=== PATIENT | female | born 1955 | race Caucasian/White ===

== ENCOUNTER 2021-07-29 13:53 | Outpatient (CLI) | payer BC | END 2021-07-29 13:54 | disposition home or self-care (01) | LOC: CSHMAMMO 13:53 | PROVIDERS: ATTEND Family Medicine Sports Medicine | DX: Z12.31 Encounter for screening mammogram for malignant neoplasm of breast (principal); Z98.82 Breast implant status | CPT/HCPCS: 77063; 77067 ==

== ENCOUNTER 2023-03-19 14:03 | Outpatient (CLI) | payer MEDICARE, OTHER | END 2023-03-19 14:04 | disposition home or self-care (01) | LOC: CSHMAMMO 14:03 | PROVIDERS: ATTEND Obstetrics & Gynecology | DX: Z12.31 Encounter for screening mammogram for malignant neoplasm of breast (principal); Z13.820 Encounter for screening for osteoporosis; M81.0 Age-related osteoporosis without current pathological fracture; M85.88 Other specified disorders of bone density and structure, other site; Z98.82 Breast implant status | CPT/HCPCS: 77063; 77067; 77080 ==

== ENCOUNTER 2024-05-29 11:34 | Outpatient (CLI) | payer MEDICARE | END 2024-05-29 11:35 | disposition home or self-care (01) | LOC: CSHULT 11:34 | PROVIDERS: ATTEND Family Medicine Sports Medicine | DX: R22.1 Localized swelling, mass and lump, neck (principal) | CPT/HCPCS: 76536 ==

== ENCOUNTER 2024-06-03 07:56 | Outpatient (CLI) | payer MEDICARE ==
[2024-06-03] MEDS ORDERED: Iopamidol 300 61% 100 ML VIAL FS ONE (14:21)
== END 2024-06-03 07:57 | disposition home or self-care (01) ==
LOC: CSHCT 07:56
PROVIDERS: ATTEND Family Medicine Sports Medicine
DX: R22.1 Localized swelling, mass and lump, neck (principal); C02.4 Malignant neoplasm of lingual tonsil; C77.0 Secondary and unspecified malignant neoplasm of lymph nodes of head, face and neck
CPT/HCPCS: 70491; 82565

== ENCOUNTER 2024-06-05 10:18 | Outpatient (CLI) | payer MEDICARE ==
[2024-06-05 11:11] LABS: Hematocrit 40.3 % (34.9-44.5)
[2024-06-05 12:07] LABS: Anion Gap 15 mmol/L (10-20); BUN (Urea Nitrogen) 9 mg/dL (9.8-20.1); Calc. Creatinine Clearance 0 mL/min (70-130); Calcium 10.2 mg/dL (7.8-10.44); Carbon Dioxide 24 mmol/L (23-31); Chloride 105 mmol/L (98-107); Estimated GFR 84; Glucose 105 mg/dL (80-115); Potassium 4.5 mmol/L (3.5-5.1); Sodium 139 mmol/L (136-145)
== END 2024-06-05 10:19 | disposition home or self-care (01) ==
LOC: CSHLAB 10:18
PROVIDERS: ATTEND Otolaryngology Otolaryngic Allergy
DX: Z01.818 Encounter for other preprocedural examination (principal); R59.0 Localized enlarged lymph nodes; D37.02 Neoplasm of uncertain behavior of tongue
CPT/HCPCS: 80048; 85014; 85018; 93005; 93010

== ENCOUNTER 2024-06-10 05:44 | Day surgery (SDC) | payer MEDICARE ==
[2024-06-05 11:24] VITALS: BMI 24.1
[2024-06-10] MEDS ORDERED: EPINEPHrine 1 MG/ML VIAL ONE (06:14)
[2024-06-10] MEDS ORDERED: fentaNYL 50 mcg/mL 1 mL Vial ONE ×2 (06:42→08:22)
[2024-06-10] MEDS ORDERED: SUGAMMADEX SODIUM 200 MG/2 ML VIAL ONE (06:42)
[2024-06-10] MEDS ORDERED: Ondansetron PF 4 MG/2 ML Vial ONE (06:42)
[2024-06-10] MEDS ORDERED: Midazolam HCl 2 mg/2 ml Vial ONE (06:42)
[2024-06-10] MEDS ORDERED: Rocuronium Bromide 10 MG/ML (10ML VIAL) ONE (06:42)
[2024-06-10] MEDS ORDERED: PROPOFOL 20 ML ONE (06:42)
[2024-06-10] MEDS ORDERED: Lidocaine 1% PF 5 ML VIAL ONE (06:42)
[2024-06-10] MEDS ORDERED: Dexamethasone 20 MG/5 ML VIAL ONE (06:42)
[2024-06-10] MEDS ORDERED: Labetalol HCl 100 MG/20 ML VIAL ONE (07:25)
== END 2024-06-10 09:15 | disposition home or self-care (01) ==
LOC: CSHSDC 05:44
PROVIDERS: ATTEND Otolaryngology Otolaryngic Allergy
PROC: 0CBM8ZX Excision of Pharynx, Via Natural or Artificial Opening Endoscopic, Diagnostic (ICD-10-PCS; principal; 2024-06-10)
DX: C01 Malignant neoplasm of base of tongue (principal); R59.0 Localized enlarged lymph nodes; H90.3 Sensorineural hearing loss, bilateral; H60.392 Other infective otitis externa, left ear; H71.90 Unspecified cholesteatoma, unspecified ear; J30.9 Allergic rhinitis, unspecified; J01.90 Acute sinusitis, unspecified; M81.0 Age-related osteoporosis without current pathological fracture; Z88.1 Allergy status to other antibiotic agents; Z88.8 Allergy status to other drugs, medicaments and biological substances; Z79.899 Other long term (current) drug therapy
CPT/HCPCS: 31535; J0171; J1100; J2250; J2405; J2704; J3010; 88305; 88331; 88342